=== PATIENT | female | born 1945 | race Caucasian/White ===

== ENCOUNTER 2021-08-26 13:05 | Inpatient (IN) | payer MEDICARE, BC ==
[~2021-08-26] VITALS: Ht 165.1 cm; Wt 55.5 kg
--- NOTE | 2021-08-26 13:05 | NUR ---
at bedside assessment in progress.
[2021-08-26] MEDS ORDERED: MAGN400C PO (13:30)
[2021-08-26] MEDS ORDERED: RIZA10TA27 PO (13:30)
[2021-08-26] MEDS ORDERED: SERT100T PO (13:30)
[2021-08-26] MEDS ORDERED: CHOL500050 PO (13:30)
[2021-08-26] MEDS ORDERED: LOPE2CAP40 PO (13:30)
[2021-08-26] MEDS ORDERED: [UNRECOGNIZED DRUG - CODE] PO (13:30)
[2021-08-26] MEDS ORDERED: TRAZ-257 PO (13:30)
[2021-08-26] MEDS ORDERED: TRAM50TA2 PO (13:30)
[2021-08-26] MEDS ORDERED: MIRT-93 PO (13:30)
[2021-08-26] MEDS ORDERED: OLAN5TAB3 PO (13:30)
[2021-08-26] MEDS ORDERED: DIVA125T2 PO (13:30)
[2021-08-26] MEDS ORDERED: HYDR-3980 PO (13:30)
[2021-08-26] MEDS ORDERED: BUPR200T2 PO (13:30)
[2021-08-26] MEDS ORDERED: PANTOPRAZOLE SODIUM 40 MG VIAL IV ONE (13:30)
[2021-08-26] MEDS ORDERED: SACC250C PO (13:30)
[2021-08-26] MEDS ORDERED: TROS20TA3 PO (13:30)
[2021-08-26] MEDS ORDERED: POTA20TA83 PO (13:30)
[2021-08-26] MEDS ORDERED: IV NORMAL SALINE 1000 ML BAG IV ONE (13:30)
[2021-08-26] MEDS ORDERED: ASPI81TA31 PO (13:30)
[2021-08-26] MEDS ORDERED: ACET-2605 PO (13:30)
[2021-08-26] MEDS ORDERED: METH5TAB6 PO (13:30)
[2021-08-26] MEDS ORDERED: ACYC400T19 PO (13:30)
[2021-08-26] MEDS ORDERED: PANTOPRAZOLE SODIUM 40 MG VIAL ONE (13:43)
[2021-08-26 13:50] LABS: HEMATOCRIT 32.1 % (31.2-41.9); MEAN CORPUSCULAR HEMOGLOBIN 34.6 uug (24.7-32.8); MEAN CORPUSCULAR VOLUME 100.8 fL (75.5-95.3); PLATELET COUNT (AUTO) 217 K/uL (179-408)
[2021-08-26 13:53] LABS: CREATININE 0.9 mg/dL (0.6-1.3); POTASSIUM 4.2 mmol/L (3.5-5.1)
[2021-08-26 13:59] LABS: BILIRUBIN,DIRECT 0.1 mg/dL (0.0-0.2); BILIRUBIN,TOTAL 0.4 mg/dL (0.2-1.0); TOTAL PROTEIN, SERUM 10.4 g/dL (6.4-8.2)
[2021-08-26 14:15] LABS: *OCCULT BLOOD STOOL POSITIVE (NEGATIVE)
--- NOTE | 2021-08-26 14:51 | NUR ---
I&O as ordered by . specimen collected and taken to Lab.
[2021-08-26 14:52] LABS: *BILIRUBIN,URIN NEGATIVE (NEGATIVE); *BLOOD, URINE 1+ (NEGATIVE); *CLARITY,URINE CLEAR (CLEAR); *COLOR,URINE YELLOW (YELLOW); *KETONES,URINE NEGATIVE (NEGATIVE); *UROBILINOGEN,URINE 0.2 E.U./dl (NORMAL); LEUKOCYTE ESTERASE ,URINE NEGATIVE (NEGATIVE); NITRITE, URINE NEGATIVE (NEGATIVE); UGLUCOSE NEGATIVE (NEGATIVE)
--- NOTE | 2021-08-26 15:23 | NUR ---
Telephone report given to Marta Tee pt. will be taken up to room 305.
[2021-08-26] MEDS ORDERED: REMEDY ESSENTIAL ZINC PASTE 113 GM TP PRN (15:45)
[2021-08-26] MEDS ORDERED: ACETAMINOPHEN 325 MG TABLET PO PRN (15:45)
[2021-08-26] MEDS ORDERED: ONDANSETRON 4 MG/2 ML VIAL IV PRN (15:45)
--- NOTE | 2021-08-26 15:46 | NUR ---
Pt. taken to room 305 get situated in bed with the help of staff Katie and rn. tolerated transfer fairly.
--- NOTE | 2021-08-26 15:48 | NUR ---
Received pt from ER at 1540. Was reported that pt is only alert and oriented to self but Pt is a/o x 3-4, able to provide medical history herself, is aware that she is in [facility]. Pt accurately answered name and date of . Per [facility] face sheet, pt is DNR status. Called facility to fax over POLST. Per pt, she ambulates at assisted living with a walker. Came in for having blood in stool. She is unable to state her medications but states that her will have a list. No apparent skin issues. Pt had a BM, no blood visible in stool. Pt is incontinent. She is able to communicate needs. No skin issues present. Lungs and heart were clear upon assessment. Bowel sounds active in all quadrants, nontender and soft. Pt is cooperative with care, presents with normal sinus rhythm on tele. HR 91- 103bpm. Comfort measures provided, call light within reach, Bed alarm on. Will continue to monitor.
[2021-08-26] MEDS ORDERED: FLEET ENEMA 133 ML BOTTLE RC ONE (16:15)
[2021-08-26 16:45] VITALS: BP 155/89
[2021-08-26 17:02] LABS: BACTERIA,URINE MODERATE /HPF (NONE SEEN); RBC,URINE 0-3 /HPF (0-3); SQUAMOUS EPITHELIAL CELL,UR FEW /HPF (NONE SEEN)
[2021-08-26] MEDS ORDERED: LOPERAMIDE HCL 2 MG CAPSULE PO PRN (17:30)
[2021-08-26] MEDS ORDERED: IXAZOMIB CITRATE 2.3 MG PO SCH (17:30)
[2021-08-26] MEDS: IV NS 1000 ML 1,000 ML IV PRN (18:16)
[2021-08-26] MEDS: CEFTRIAXONE 1 G in IV DEXTROSE 5% 50 ML IV SCH (18:53)
[2021-08-26 20:27] VITALS: BP 151/75
[2021-08-26] MEDS: MIRTAZAPINE 15 MG TABLET PO SCH (21:03)
[2021-08-26] MEDS: TRAZODONE 100 MG TABLET PO SCH (21:03)
[2021-08-26] MEDS: OLANZAPINE 5 MG TABLET PO SCH (21:03)
[2021-08-26] MEDS ORDERED: MIRALAX 17 GM POWD.PACK PO PRN (22:30)
[2021-08-27 01:21] VITALS: BP 118/61
[2021-08-27 05:15] VITALS: BP 118/60
--- NOTE | 2021-08-27 06:06 | NUR ---
Pt slept throughout the night. No distress noted. Pt able to make needs known. IV site intact. Safety protocols kept in place. Will endorse to day shift.
[2021-08-27 06:35] LABS: HEMATOCRIT 25.8 % (31.2-41.9); MEAN CORPUSCULAR HEMOGLOBIN 35.2 uug (24.7-32.8); MEAN CORPUSCULAR VOLUME 100.6 fL (75.5-95.3); PLATELET COUNT (AUTO) 167 K/uL (179-408)
[2021-08-27 06:55] LABS: CREATININE 0.8 mg/dL (0.6-1.3); PHOSPHOROUS 3.2 mg/dL (2.5-4.9); POTASSIUM 3.3 mmol/L (3.5-5.1)
[2021-08-27] MEDS: IV NS 1000 ML 1,000 ML IV PRN ×2 (06:55→20:35)
[2021-08-27 07:51] LABS: THYROID STIMULATING HORMONE 0.701 mIU/mL (0.358-3.740)
[2021-08-27] MEDS: buPROPion SR 100 MG TABLET.SA PO SCH (08:24)
[2021-08-27] MEDS: ASPIRIN 81 MG TAB.CHEW PO SCH (08:25)
[2021-08-27] MEDS: CHOLECALCIFEROL 1,000 UNIT TABLET PO SCH (08:25)
[2021-08-27] MEDS: DIVALPROEX 125 MG TABLET.DR PO SCH (08:27)
[2021-08-27] MEDS: SERTRALINE HCL 100 MG TABLET PO SCH (08:27)
[2021-08-27] MEDS: METHIMAZOLE 5 MG TABLET PO SCH (08:27)
[2021-08-27] MEDS: PANTOPRAZOLE SODIUM 40 MG VIAL IV SCH (08:28)
[2021-08-27] MEDS ORDERED: BUPROPION HCL 200 MG PO SCH (09:00)
[2021-08-27] MEDS ORDERED: ACYCLOVIR 400 MG TABLET PO SCH (09:00)
--- NOTE | 2021-08-27 09:08 | NUR ---
Patient PT. PT suggest patient should be moved to SNF when patient is able. Patient needs total assist.
[2021-08-27] MEDS: HYDROCODONE/APAP 10-325 MG TABLET PO PRN ×2 (09:31→19:50)
--- NOTE | 2021-08-27 10:12 | NUR ---
Spoke to patients regarding medications. Pharmacy notified. Patient's to bring patient's medication.
[2021-08-27 11:08] VITALS: BP 126/63
[2021-08-27] MEDS ORDERED: POTASSIUM CHLORIDE 20 MEQ TAB.PRT.SR PO ONE (12:00)
[2021-08-27 12:15] LABS: IRON, SERUM 64 ug/dL (50-175)
--- NOTE | 2021-08-27 12:36 | NUR ---
Consent obtained from patient. At time of signature, patient is alert and oriented x 4; person, place, time, and location.
[2021-08-27 13:15] LABS: *RHEUMATOID FACTOR SCREEN NEG (NEGATIVE)
[2021-08-27 15:13] VITALS: BP 102/47
[2021-08-27 16:43] LABS: FERRITIN 282 ng/mL (8-252)
[2021-08-27] MEDS: CEFTRIAXONE 1 G in IV DEXTROSE 5% 50 ML IV SCH (17:02)
[2021-08-27] MEDS: ACYCLOVIR 200 MG CAPSULE PO SCH (17:20)
[2021-08-27 20:00] VITALS: BP 111/48
[2021-08-27] MEDS: OLANZAPINE 5 MG TABLET PO SCH (20:32)
[2021-08-27] MEDS: MIRTAZAPINE 15 MG TABLET PO SCH (20:32)
[2021-08-27] MEDS: TRAZODONE 100 MG TABLET PO SCH (20:32)
[2021-08-28] VITALS: BP 117/64
[2021-08-28] MEDS: HYDROCODONE/APAP 10-325 MG TABLET PO PRN ×4 (01:52→14:59)
[2021-08-28 04:00] VITALS: BP 137/64
--- NOTE | 2021-08-28 05:37 | NUR ---
Slept intermittently. C/o back pain relieved by [place]. Denies SOB at this time. IV site intact. Safety protocols kept in place, will endorse to day shift.
[2021-08-28] MEDS: METHIMAZOLE 5 MG TABLET PO SCH (06:12)
[2021-08-28 07:01] LABS: CREATININE 0.8 mg/dL (0.6-1.3); MAGNESIUM 1.9 mg/dL (1.8-2.4); PHOSPHOROUS 3.7 mg/dL (2.5-4.9); POTASSIUM 3.1 mmol/L (3.5-5.1)
[2021-08-28 07:06] LABS: *IMMUNOGLOBULIN G, SERUM 4668 mg/dL (586-1602); IMMUNOGLOBULIN A, SERUM 106 mg/dL (64-422); IMMUNOGLOBULIN M, SERUM 31 mg/dL (26-217)
[2021-08-28 08:06] LABS: HEPATITIS B SURFACE AG Negative (Negative)
[2021-08-28] MEDS: buPROPion SR 100 MG TABLET.SA PO SCH (08:16)
[2021-08-28] MEDS: CHOLECALCIFEROL 1,000 UNIT TABLET PO SCH (08:16)
[2021-08-28] MEDS: DIVALPROEX 125 MG TABLET.DR PO SCH (08:16)
[2021-08-28] MEDS: ACYCLOVIR 200 MG CAPSULE PO SCH ×2 (08:16→17:00)
[2021-08-28] MEDS: SERTRALINE HCL 100 MG TABLET PO SCH (08:16)
[2021-08-28] MEDS: ASPIRIN 81 MG TAB.CHEW PO SCH (08:16)
[2021-08-28] MEDS: PANTOPRAZOLE SODIUM 40 MG VIAL IV SCH (08:17)
[2021-08-28 08:31] LABS: HEMATOCRIT 25.5 % (31.2-41.9); MEAN CORPUSCULAR HEMOGLOBIN 34.6 uug (24.7-32.8); MEAN CORPUSCULAR VOLUME 102.7 fL (75.5-95.3); PLATELET COUNT (AUTO) 162 K/uL (179-408)
[2021-08-28] MEDS: IV NS 1000 ML 1,000 ML IV PRN (09:49)
[2021-08-28] MEDS: CYANOCOBALAMIN 1000 MCG/ML VIAL IM SCH (09:49)
[2021-08-28 10:07] LABS: *ANTI-SCLERODERMA-70 AB <0.2 AI (0.0-0.9); *SJOGREN'S ANTI-SS-A <0.2 AI (0.0-0.9); *SJOGREN'S ANTI-SS-B <0.2 AI (0.0-0.9); *SMITH ANTIBODIES <0.2 AI (0.0-0.9); ANTI-DNA(DS) AB, QN <1 IU/mL (0-9)
[2021-08-28] MEDS: POTASSIUM CHLORIDE 50 ML IV SCH ×4 (10:14→13:31)
[2021-08-28 11:18] VITALS: BP 178/87
[2021-08-28] MEDS ORDERED: DIATR MEGLU/DIATRIZOATE SODIUM 30 ML BOTTLE ONE (11:24)
[2021-08-28] MEDS ORDERED: DIATR MEGLU/DIATRIZOATE SODIUM 30 ML BOTTLE PO ONE (11:26)
[2021-08-28] MEDS: MORPHINE SULFATE 4 MG/1 ML DISP.SYRIN IV PRN (12:11)
[2021-08-28 16:02] VITALS: BP 143/78
[2021-08-28 16:07] LABS: A/G RATIO 0.5 (0.7-1.7); ALBUMIN 2.6 g/dL (2.9-4.4); ALPHA-1-GLOBULIN 0.3 g/dL (0.0-0.4); ALPHA-2-GLOBULIN 1.1 g/dL (0.4-1.0); BETA GLOBULIN 0.7 g/dL (0.7-1.3); GAMMA GLOBULIN 3.3 g/dL (0.4-1.8); GLOBULIN, TOTAL 5.5 g/dL (2.2-3.9)
[2021-08-28] MEDS: CEFTRIAXONE 1 G in IV DEXTROSE 5% 50 ML IV SCH (17:17)
--- NOTE | 2021-08-28 18:30 | NUR ---
Patient received care well today with pain management. IV site intact. Bed left in lowest position with call light within reach. Patient to become NPO at midnight due to patient's EGD tomorrow 08/29/21. Will endorse information to PM nurse.
[2021-08-28 20:43] VITALS: BP 136/69
[2021-08-28] MEDS: MIRTAZAPINE 15 MG TABLET PO SCH (20:51)
[2021-08-28] MEDS: TRAZODONE 100 MG TABLET PO SCH (20:51)
[2021-08-28] MEDS: OLANZAPINE 5 MG TABLET PO SCH (20:51)
[2021-08-28] MEDS: TROSPIUM CHLORIDE 20 MG PO SCH (20:55)
[2021-08-28] MEDS: NORMAL SALINE IV SCH (22:00)
[2021-08-28] MEDS: ERYTHROMYCIN LACTOBIONATE IV SCH (22:00)
--- NOTE | 2021-08-28 23:00 | NUR ---
Patient in bed resting comfortable. on Ra.No SOB.NPO after midnight. Erythromycin LActobionate IV not administer d/t not available at this time. R&D Engineer and Camron Swan made aware.
[2021-08-29] MEDS: MORPHINE SULFATE 4 MG/1 ML DISP.SYRIN IV PRN ×2 (03:40→21:43)
[2021-08-29 04:35] VITALS: BP 147/80
[2021-08-29] MEDS: IV NS 1000 ML 1,000 ML IV PRN (05:49)
[2021-08-29] MEDS: ERYTHROMYCIN LACTOBIONATE IV SCH (06:00)
[2021-08-29] MEDS: NORMAL SALINE IV SCH (06:00)
[2021-08-29] MEDS: METHIMAZOLE 5 MG TABLET PO SCH (06:07)
--- NOTE | 2021-08-29 06:44 | NUR ---
Erythromycin LActobionate IV still not available at this time. Content Writer and Camron Swan made aware.Will endorse to oncoming shift
[2021-08-29 07:16] LABS: CREATININE 0.7 mg/dL (0.6-1.3); POTASSIUM 3.1 mmol/L (3.5-5.1)
[2021-08-29 07:20] LABS: HEMATOCRIT 25.4 % (31.2-41.9); MEAN CORPUSCULAR HEMOGLOBIN 35.3 uug (24.7-32.8); MEAN CORPUSCULAR VOLUME 100.9 fL (75.5-95.3); PLATELET COUNT (AUTO) 183 K/uL (179-408)
[2021-08-29 07:25] LABS: MAGNESIUM 1.9 mg/dL (1.8-2.4); PHOSPHOROUS 4.1 mg/dL (2.5-4.9)
[2021-08-29] MEDS: CYANOCOBALAMIN 1000 MCG/ML VIAL IM SCH (08:40)
[2021-08-29] MEDS: PANTOPRAZOLE SODIUM 40 MG VIAL IV SCH (08:41)
[2021-08-29] MEDS: DIVALPROEX 125 MG TABLET.DR PO SCH (08:41)
[2021-08-29] MEDS: SERTRALINE HCL 100 MG TABLET PO SCH (08:42)
[2021-08-29] MEDS: ACYCLOVIR 200 MG CAPSULE PO SCH ×2 (08:42→16:46)
[2021-08-29] MEDS: buPROPion SR 100 MG TABLET.SA PO SCH (08:42)
[2021-08-29] MEDS: ASPIRIN 81 MG TAB.CHEW PO SCH (08:43)
[2021-08-29] MEDS: CHOLECALCIFEROL 1,000 UNIT TABLET PO SCH (08:43)
--- NOTE | 2021-08-29 08:43 | NUR ---
CAPS NOT GIVEN SECONDARY TO GI BLEED
[2021-08-29] MEDS: POTASSIUM CHLORIDE 50 ML IV SCH ×4 (10:09→13:57)
[2021-08-29 11:22] VITALS: BP 147/78
--- NOTE | 2021-08-29 11:30 | NUR ---
Received pt from nurse Hendrix. Pt receiving IV potassium chloride supplementation. pt is currently asleep. No signs of acute distress. Comfort measures provided, call light within reach. Will continue to monitor pt.
[2021-08-29] MEDS: ERYTHROMYCIN BASE 250 MG TABLET PO SCH ×2 (14:59→20:17)
[2021-08-29 15:12] VITALS: BP 157/79
--- NOTE | 2021-08-29 15:20 | NUR ---
Pt's BP reported 157/79 HR 78. Notified SUPERVISOR PUMPING Beny. No further action action directed at this time. Will continue to monitor pt.
--- NOTE | 2021-08-29 16:36 | NUR ---
Pt to be placed on NPO at midnight for EGD to be done tomorrow. Consent signed by pt, placed in chart.
[2021-08-29] MEDS: CEFTRIAXONE 1 G in IV DEXTROSE 5% 50 ML IV SCH (17:00)
[2021-08-29] MEDS: TRAZODONE 100 MG TABLET PO SCH (20:17)
[2021-08-29] MEDS: OLANZAPINE 5 MG TABLET PO SCH (20:17)
[2021-08-29] MEDS: TROSPIUM CHLORIDE 20 MG PO SCH (20:17)
[2021-08-29] MEDS: MIRTAZAPINE 15 MG TABLET PO SCH (20:18)
[2021-08-29 20:30] VITALS: BP 139/68
--- NOTE | 2021-08-29 20:39 | NUR ---
RECEIVED PATIENT IN BED. APPEARS DROWSY. AWAKEN BY DEEP TOUCH. AAOX4. BRUISES NOTED ON BILATERAL ARMS. WITH PATIENT AT LFA,20 GAUGE, TKO AT 10CC/HR. PATIENT COMPLIANT WITH MEDICATION. ABLE TO TAKE PILLS WHOLE. PATIENT TO BE KEPT ON NPO AT MIDNIGHT, FOR EGD TOMORROW. AWAIT COTTON MACHINE OPERATOR'S CALL REGARDING SCHEDULE. NO ACUTE DISTRESS NOTED AT THIS TIME. WILL CONTINUE TO MONITOR.
--- NOTE | 2021-08-29 20:40 | NUR ---
PATIENT NOTED TO HAVE OXYGEN SATURATION OF 94%, INCREASED O2 DELIVERY TO 4CC/HR. OXYGEN NOW AT 97%. PATIENT ALSO NOTED TO HAVE ELEVATED TEMPERATURE OF 98.8. COOLING MEASURES INITIATED. WILL CONTINUE TO MONITOR.
--- NOTE | 2021-08-29 21:50 | NUR ---
PATIENT COMPLAINS OF HAVING BACK PAIN, RATED IT "20/10", FACIAL GRIMACING NOTED. PRN DOSE GIVEN ORDERED.
--- NOTE | 2021-08-29 23:40 | NUR ---
ASKED NURSE WARD HELPER REGARDING PATIENT'S SCHEDULED EGD. NURSE WARD HELPER, MARTIN, ADVISED NO SCHEDULE YET AND TO KEEP PATIENT ON NPO.
[2021-08-30 04:52] VITALS: BP 118/61
[2021-08-30] MEDS: METHIMAZOLE 5 MG TABLET PO SCH (06:09)
--- NOTE | 2021-08-30 06:23 | NUR ---
PATIENT SLEPT THROUGH THE NIGHT WITH NO COMPLAINTS. RECEIVING O2 VIA NASAL CANNULA AT 4LPM, SATURATING AT 96%. IV ACCESS PATENT AND INTACT, TKO. KEPT PATIENT ON NPO, DID NOT GIVE MORNING DOSE OF TAPAZOLE D/T NPO STATUS. SAFETY PRECAUTIONS MAINTAINED. WILL ENDORSE TO DAY SHIFT.
[2021-08-30 06:29] LABS: HEMATOCRIT 25.7 % (31.2-41.9); MEAN CORPUSCULAR HEMOGLOBIN 35.6 uug (24.7-32.8); MEAN CORPUSCULAR VOLUME 101.2 fL (75.5-95.3); PLATELET COUNT (AUTO) 177 K/uL (179-408)
[2021-08-30 06:40] LABS: CREATININE 0.8 mg/dL (0.6-1.3); POTASSIUM 3.4 mmol/L (3.5-5.1)
[2021-08-30 07:08] LABS: MAGNESIUM 1.8 mg/dL (1.8-2.4); PHOSPHOROUS 4.6 mg/dL (2.5-4.9)
[2021-08-30] MEDS: SERTRALINE HCL 100 MG TABLET PO SCH (08:20)
[2021-08-30] MEDS: buPROPion SR 100 MG TABLET.SA PO SCH (08:20)
[2021-08-30] MEDS: CHOLECALCIFEROL 1,000 UNIT TABLET PO SCH (08:20)
[2021-08-30] MEDS: ACYCLOVIR 200 MG CAPSULE PO SCH ×2 (08:20→16:00)
[2021-08-30] MEDS: DIVALPROEX 125 MG TABLET.DR PO SCH (08:20)
[2021-08-30] MEDS: ERYTHROMYCIN BASE 250 MG TABLET PO SCH ×3 (08:21→16:02)
[2021-08-30] MEDS: ASPIRIN 81 MG TAB.CHEW PO SCH (08:21)
[2021-08-30] MEDS: CYANOCOBALAMIN 1000 MCG/ML VIAL IM SCH (08:21)
[2021-08-30] MEDS: PANTOPRAZOLE SODIUM 40 MG VIAL IV SCH (08:21)
--- NOTE | 2021-08-30 08:44 | NUR ---
Pt has been placed on NPO since midnight. 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 Consent placed in chart.
--- NOTE | 2021-08-30 09:50 | NUR ---
Pt has been taken down for procedure.
[2021-08-30] MEDS ORDERED: POTASSIUM CHLORIDE 20 MEQ POWDER PACKET PO ONE (10:00)
--- NOTE | 2021-08-30 11:01 | NUR ---
Pt is back on the floor post EGD. Pt is placed on 4L nasal cannula. Suspend DNR status for 24hr post procedure. May resume DNR status 08/31 999. Pt may resume all orders and diet per MD orders.
[2021-08-30] MEDS ORDERED: LIDOCAINE-MPF 2% 5 ML VIAL ONE (11:15)
[2021-08-30] MEDS ORDERED: SIMETHICONE 40 MG/0.6 ML, 30ML BOTTLE ONE (11:15)
[2021-08-30] MEDS ORDERED: PROPOFOL 200 MG/20 ML BOTTLE ONE (11:15)
[2021-08-30 12:00] VITALS: BP 141/72
[2021-08-30] MEDS: ENSURE ENLIVE (VAN) 240 ML LIQUID PO SCH ×2 (12:28→16:00)
[2021-08-30] MEDS ORDERED: POTASSIUM CHLORIDE 20 MEQ TAB.PRT.SR PO ONE (15:15)
[2021-08-30] MEDS ORDERED: FUROSEMIDE 40 MG/4 ML VIAL IV ONE (15:15)
--- NOTE | 2021-08-30 16:30 | NUR ---
titrated pt from 4L to 3L NC, saturating at 97%. Will attempt titration again as tolerated.
[2021-08-30 16:40] VITALS: BP 124/64
[2021-08-30] MEDS: CEFTRIAXONE 1 G in IV DEXTROSE 5% 50 ML IV SCH (17:04)
[2021-08-30 20:00] VITALS: BP_SYST 108; BP_SYST 165; BP_DIAS 74; BP_DIAS 86
--- NOTE | 2021-08-30 20:30 | NUR ---
RECEIVED PATIENT IN BED. AAOX4. ABLE TO MAKE NEEDS KNOWN. PATIENT WAS NOTED TO HAVE ELEVATED BP OF 167/85MMMHG AND HR OF 109BPM, PATIENT COMPLAINED HAVING PAIN, NORCO GIVEN AND BP RETAKEN SHOWING RESULT 149/72MMHG AND HR OF 109BPM. ON 3L O2, SATURATING AT 95%. SHOWS NO SIGN OF SOB OR CHEST PAIN. SAFETY PRECAUTIONS INITIATED. WILL CONTINUE TO MONITOR.
[2021-08-30] MEDS: TRAZODONE 100 MG TABLET PO SCH (20:44)
[2021-08-30] MEDS: MIRTAZAPINE 15 MG TABLET PO SCH (20:44)
[2021-08-30] MEDS: TROSPIUM CHLORIDE 20 MG PO SCH (20:45)
[2021-08-30] MEDS: OLANZAPINE 5 MG TABLET PO SCH (20:45)
[2021-08-30] MEDS: HYDROCODONE/APAP 10-325 MG TABLET PO PRN (20:46)
[2021-08-30 21:00] VITALS: BP 149/72
[2021-08-31 04:15] VITALS: BP 155/82
[2021-08-31] MEDS: METHIMAZOLE 5 MG TABLET PO SCH (06:16)
--- NOTE | 2021-08-31 06:46 | NUR ---
PATIENT SLEPT THROUGH THE NIGHT WITH NO FURTHER COMPLAINTS. NO ACUTE DISTRESS NOTED AT THIS TIME. COMPLIANT WITH MEDICATION REGIMEN. IV ACCESS PATENT AND INTACT. ALL NEEDS ATTENDED TO AND MET. SAFETY PRECAUTIONS MAINTAINED. WILL ENDORSE TO DAY SHIFT.
--- NOTE | 2021-08-31 06:53 | NUR ---
PATIENT O2 TITRATED DOWN TO 2LPM, NOW SATURATING AT 96-97%.
[2021-08-31 06:54] LABS: HEMATOCRIT 27.9 % (31.2-41.9); MEAN CORPUSCULAR HEMOGLOBIN 35.2 uug (24.7-32.8); PLATELET COUNT (AUTO) 214 K/uL (179-408)
[2021-08-31 07:16] LABS: CREATININE 0.9 mg/dL (0.6-1.3); POTASSIUM 3.4 mmol/L (3.5-5.1)
[2021-08-31 07:22] LABS: PHOSPHOROUS 4.8 mg/dL (2.5-4.9)
--- NOTE | 2021-08-31 07:30 | NUR ---
alert and oriented x3 no acute distress. on 2 lpm nc tolerated no sob noted. denies pain at this time. iv intact no signs of infiltration or phlebitis. assisted with needs. kept comfortable. safety maintained. call light in reach.
[2021-08-31] MEDS: CYANOCOBALAMIN 1000 MCG/ML VIAL IM SCH (08:22)
[2021-08-31] MEDS: PANTOPRAZOLE SODIUM 40 MG VIAL IV SCH (08:22)
[2021-08-31] MEDS: ASPIRIN 81 MG TAB.CHEW PO SCH (08:22)
[2021-08-31] MEDS: DIVALPROEX 125 MG TABLET.DR PO SCH (08:22)
[2021-08-31] MEDS: SERTRALINE HCL 100 MG TABLET PO SCH (08:22)
[2021-08-31] MEDS: CHOLECALCIFEROL 1,000 UNIT TABLET PO SCH (08:22)
[2021-08-31] MEDS: ENSURE ENLIVE (VAN) 240 ML LIQUID PO SCH ×2 (08:22→17:04)
[2021-08-31] MEDS: buPROPion SR 100 MG TABLET.SA PO SCH (08:23)
[2021-08-31] MEDS: ACYCLOVIR 200 MG CAPSULE PO SCH ×2 (08:23→17:02)
[2021-08-31] MEDS: ERYTHROMYCIN BASE 250 MG TABLET PO SCH (08:24)
--- NOTE | 2021-08-31 09:01 | NUR ---
rounding with VÍCTOR Soler updated on medical condition no new order received.
--- NOTE | 2021-08-31 09:10 | NUR ---
dr. restrepo rounding with order to put on telemetry.
--- NOTE | 2021-08-31 09:25 | NUR ---
dr. restrepo made aware pt sinus tachy hr 101 no new order received.
[2021-08-31] MEDS: POTASSIUM CHLORIDE 50 ML IV SCH ×4 (09:27→12:45)
[2021-08-31] MEDS: HYDROCODONE/APAP 10-325 MG TABLET PO PRN (10:40)
[2021-08-31 11:30] VITALS: BP 108/57
[2021-08-31] MEDS: ERYTHROMYCIN ETHYLSUCC 200 MG/5 ML SUSPENSION 100ML PO SCH ×3 (13:43→20:35)
--- NOTE | 2021-08-31 14:32 | NUR ---
report given to seven fernández for continuity of care.
[2021-08-31 16:00] VITALS: BP 112/58
--- NOTE | 2021-08-31 17:41 | NUR ---
Med. Surg. Notes: Gastrointestinal Bleeding: Patient is awake and responding to her name, cooperative with nursing care, no s/s of bleeding, denies SOB, compliant with her medications, continue to monitor for safety, continue with treatment plan.
--- NOTE | 2021-08-31 19:45 | NUR ---
Report received. Patient sleeping easily, follows commands appropriately but with limited verbal responses to questions. Oriented to name, speech clear.
[2021-08-31 20:03] VITALS: BP 109/50
[2021-08-31] MEDS: NITROFURANTOIN/NITROFURAN MAC 100 MG CAPSULE PO SCH (20:35)
[2021-08-31] MEDS: TRAZODONE 100 MG TABLET PO SCH (20:35)
[2021-08-31] MEDS: TROSPIUM CHLORIDE 20 MG PO SCH (20:35)
[2021-08-31] MEDS: OLANZAPINE 5 MG TABLET PO SCH (20:35)
[2021-08-31] MEDS: MIRTAZAPINE 15 MG TABLET PO SCH (20:35)
[2021-09-01] VITALS: BP 136/58
[2021-09-01 04:03] VITALS: BP 147/65
--- NOTE | 2021-09-01 04:30 | NUR ---
Patient removing O2 NC. Advised appropriately. Cleaned for a large green soft stools. Skin care provided. O2 sats 84-87% on NC. O2 changed to mask 5L; saturations improved.
[2021-09-01] MEDS: METHIMAZOLE 5 MG TABLET PO SCH (06:28)
--- NOTE | 2021-09-01 07:00 | NUR ---
Patient's removing O2 mask. Changed to 3L NC; O2 sats 91-93%. NAD noted.
[2021-09-01 07:14] LABS: HEMATOCRIT 25.1 % (31.2-41.9); MEAN CORPUSCULAR HEMOGLOBIN 35.6 uug (24.7-32.8); MEAN CORPUSCULAR VOLUME 100.7 fL (75.5-95.3); PLATELET COUNT (AUTO) 197 K/uL (179-408)
[2021-09-01 07:27] LABS: CREATININE 0.9 mg/dL (0.6-1.3); MAGNESIUM 1.9 mg/dL (1.8-2.4); PHOSPHOROUS 4.4 mg/dL (2.5-4.9); POTASSIUM 3.8 mmol/L (3.5-5.1)
--- NOTE | 2021-09-01 07:30 | NUR ---
received on 3lpm nc sleepy but arousable. breathing unlabored. no sob noted. spo2 96%. sinus tachy on telemonitor. no facial grimacing noted. safety precautions in place. call light in place.
[2021-09-01] MEDS: ENSURE ENLIVE (VAN) 240 ML LIQUID PO SCH (08:33)
[2021-09-01] MEDS: CYANOCOBALAMIN 1000 MCG/ML VIAL IM SCH (08:33)
[2021-09-01] MEDS: NITROFURANTOIN/NITROFURAN MAC 100 MG CAPSULE PO SCH (08:33)
[2021-09-01] MEDS: DIVALPROEX 125 MG TABLET.DR PO SCH (08:33)
[2021-09-01] MEDS: PANTOPRAZOLE SODIUM 40 MG VIAL IV SCH (08:33)
[2021-09-01] MEDS: ASPIRIN 81 MG TAB.CHEW PO SCH (08:34)
[2021-09-01] MEDS: SERTRALINE HCL 100 MG TABLET PO SCH (08:34)
[2021-09-01] MEDS: ACYCLOVIR 200 MG CAPSULE PO SCH (08:34)
[2021-09-01] MEDS: CHOLECALCIFEROL 1,000 UNIT TABLET PO SCH (08:34)
[2021-09-01] MEDS: buPROPion SR 100 MG TABLET.SA PO SCH (08:35)
[2021-09-01] MEDS: ERYTHROMYCIN ETHYLSUCC 200 MG/5 ML SUSPENSION 100ML PO SCH ×2 (09:27→12:45)
[2021-09-01] MEDS ORDERED: ACYC200C31 PO (10:37)
[2021-09-01] MEDS ORDERED: PANT40TA2 PO (10:37)
[2021-09-01] MEDS ORDERED: NITR100C11 PO (10:37)
[2021-09-01 11:59] VITALS: BP 141/97
--- NOTE | 2021-09-01 13:03 | NUR ---
For discharge back to [facility]. Spoke to Vijay and is aware, verbalized understanding of discharge instructions. Also spoke to RACHELE Germ Drier Matt and states CM called him re discharge and also verbalized understanding of instructions. Patient in no acute distress.
[2021-09-01] MEDS: HYDROCODONE/APAP 10-325 MG TABLET PO PRN (13:08)
--- NOTE | 2021-09-01 15:03 | NUR ---
removed lfa iv no bleeding noted. no facial grimacing
--- NOTE | 2021-09-01 15:07 | NUR ---
Picked up by 2 Housekeeping Assistant from [facility] discharge with all her belongings in stable condition.
== END 2021-09-01 15:10 | disposition hospice, home (50) | DRG 393 ==
LOC: ER 13:05 → TELE3 15:26 → MEDSURG3 08-28 08:35 → TELE3 08-31 09:25 → MEDSURG3 09-01 11:48
PROVIDERS: ADMIT Nurse Practitioner Family; ATTEND Nurse Practitioner Acute Care
PROC: 0DB68ZX Excision of Stomach, Via Natural or Artificial Opening Endoscopic, Diagnostic (ICD-10-PCS; principal; 2021-08-30)
DX: K64.8 Other hemorrhoids (principal); K25.4 Chronic or unspecified gastric ulcer with hemorrhage; K29.71 Gastritis, unspecified, with bleeding; N39.0 Urinary tract infection, site not specified; E87.1 Hypo-osmolality and hyponatremia; C90.00 Multiple myeloma not having achieved remission; M48.55XA Collapsed vertebra, not elsewhere classified, thoracolumbar region, initial encounter for fracture; D61.818 Other pancytopenia; K58.1 Irritable bowel syndrome with constipation; G35 Multiple sclerosis; D53.9 Nutritional anemia, unspecified; E87.6 Hypokalemia; F03.90 Unspecified dementia, unspecified severity, without behavioral disturbance, psychotic disturbance, mood disturbance, and anxiety; Z66 Do not resuscitate; Z51.5 Encounter for palliative care; R13.10 Dysphagia, unspecified; N18.9 Chronic kidney disease, unspecified; I12.9 Hypertensive chronic kidney disease with stage 1 through stage 4 chronic kidney disease, or unspecified chronic kidney disease; R73.9 Hyperglycemia, unspecified; K58.9 Irritable bowel syndrome, unspecified; R62.7 Adult failure to thrive; Z90.49 Acquired absence of other specified parts of digestive tract; Z68.20 Body mass index [BMI] 20.0-20.9, adult; E88.09 Other disorders of plasma-protein metabolism, not elsewhere classified; D69.6 Thrombocytopenia, unspecified; E53.8 Deficiency of other specified B group vitamins; B96.20 Unspecified Escherichia coli [E. coli] as the cause of diseases classified elsewhere; G89.29 Other chronic pain; K59.00 Constipation, unspecified
CPT/HCPCS: 36415; 71045; 74018; 74250; 82747; 82784; 83550; 83605; 83690; 83735; 84100; 84155; 84165; 84443; 85014; 85025; 85730; 86038; 86334; 86430; 86803; 86850; 86900; 86901; 87040; 87077; 87086; 87340; 88313-TC; 88342; 93005; 93307; 97161; A4217; A4663; A6209; C1758; C9113; G0378; J0696; J1364; J1940; J2270; J3420; J3480; J3490; J7030; J7060; J8499; Q9963